=== PATIENT | female | born 1985 | race Caucasian/White ===

== ENCOUNTER 2018-04-25 17:56 | Emergency (ER) | payer MEDICAID ==
[~2018-04-25] VITALS: Ht 172.7 cm; Wt 83.3 kg
[~2018-04-25 17:56] MED LIST: ACET500C5 PO
[2018-04-25 18:36] VITALS: Ht 172.7 cm; Wt 83.3 kg
[2018-04-25] MEDS ORDERED: SOD CHLORIDE 0.9% 1,000 ML IV STA (18:48)
[2018-04-25] MEDS ORDERED: KETOROLAC 30 MG INJ IV STA (18:48)
[2018-04-25] MEDS ORDERED: ONDANSETRON 4 MG INJ IV STA (18:48)
[2018-04-25] MEDS ORDERED: IBUP-1542 PO (20:41)
--- NOTE | 2018-04-25 20:48 | ERD ---
ER Documentation Chief Complaint Chief Complaint Flank pain. HPI 32-year-old female patient with no significant past medical history presents to the ED planing of left flank pain that started earlier today. Patient reports that because of her history of kidney stones, she is unsure whether this is muscle pain or kidney stone pain because she also twisted the left side of her back. Patient reports that she is taking Macrobid for possible UTI - states that she has some suprapubic pain. Denies any fever, chills, nausea, vomiting, diarrhea, neck stiffness, abdominal pain. ROS All systems reviewed and are negative except as per history of present illness. Medications Home Meds Active Scripts Ibuprofen* (Motrin*) 600 Mg Tab, 600 MG PO Q6, #30 TAB Prov:ASHVIN LAU PA-C 04/25/18 Acetaminophen* (Tylophen*) 500 Mg Capsule, 1 CAP PO Q6H PRN for PAIN AND OR ELEVATED TEMP, #20 CAP 0 Refills Prov:MARIETTA NAJERA PA-C 06/21/15 Allergies Allergies: Coded Allergies: No Known Allergy (Unverified , 02/03/16) PMhx/Soc History of Surgery: Yes () Anesthesia Reaction: No Hx Neurological Disorder: No Hx Respiratory Disorders: No Hx Cardiac Disorders: No Hx Psychiatric Problems: No Hx Miscellaneous Medical Probl: No Hx Alcohol Use: No Hx Substance Use: No Hx Tobacco Use: No Smoking Status: Never smoker FmHx Family History: No diabetes, No coronary disease Physical Exam Vitals Vital Signs Date Temp Pulse Resp B/P (MAP) Pulse Ox O2 O2 Flow FiO2 Time Delivery Rate 04/25/18 98.1 67 16 167/92 98 18:36 (117) Physical Exam Const: [id number], well-nourished. In no acute distress. Head: Atraumatic, normocephalic Eyes: Normal Conjunctiva without injection. No purulent discharge. PERRLA. EOMI ENT: Normal external ear. Ear canal without erythema. Tympanic membrane pearly martin without effusion or bulging. Nasal canal clear with normal turbinates. Moist oropharynx without tonsillar exudates. Non-erythematous pharynx. Uvula midline. No drooling. No trismus. Neck: No cervical midline tenderness. Full range of motion. No meningismus. No cervical lymphadenopathy. No JVD. Resp: Clear to auscultation bilaterally. No wheezing, rhonchi, rales, or crackles. No accessory muscle use. No retractions. Cardio: Regular rate and rhythm. No murmurs, rubs or gallops. Abd: Soft, non tender, non distended. Normal bowel sounds. No palpable masses. No rebound tenderness. No guarding. Negative McBurney's Point. Negative Gandara's Sign. Skin: Normal skin turgor. No petechiae or rashes Back: No midline tenderness. No CVA tenderness. Ext: No cyanosis, or edema. Distal pulses intact bilaterally. Neur: Awake and alert. Normal gait. Normal coordination. Cranial Nerves II- VII intact. Normal finger to nose. Muscle strength 5/5. Sensation intact. Psych: Normal Mood and Affect Results 24 hrs Laboratory Tests Test 04/25/18 13:00 04/25/18 19:10 04/25/18 19:21 Urine Color YELLOW Urine Clarity CLEAR Urine pH 5.0 Urine Specific Cascade 1.014 Urine Ketones NEGATIVE mg/dL Urine Nitrite NEGATIVE mg/dL Urine Bilirubin NEGATIVE mg/dL Urine Urobilinogen NEGATIVE mg/dL Urine Leukocyte Esterase NEGATIVE Leticia/ul Urine Hemoglobin NEGATIVE mg/dL Urine Glucose NEGATIVE mg/dL Urine Total Protein NEGATIVE mg/dl White Blood Count 8.3 10^3/ul Red Blood Count 4.64 10^6/ul Hemoglobin 13.6 g/dl Hematocrit 40.2 % Mean Corpuscular Volume 86.6 fl Mean Corpuscular Hemoglobin 29.3 pg Mean Corpuscular 33.8 g/dl Hemoglobin Concent Red Cell Distribution Width 12.6 % Platelet Count 212 10^3/UL Mean Platelet Volume 12.5 fl Immature Granulocytes % 0.200 % Neutrophils % 57.2 % Lymphocytes % 26.9 % Monocytes % 11.0 % Eosinophils % 4.0 % Basophils % 0.7 % Nucleated Red Blood Cells % 0.0 /100WBC Immature Granulocytes # 0.020 10^3/ul Neutrophils # 4.7 10^3/ul Lymphocytes # 2.2 10^3/ul Monocytes # 0.9 10^3/ul Eosinophils # 0.3 10^3/ul Basophils # 0.1 10^3/ul Nucleated Red Blood Cells # 0.0 10^3/ul Sodium Level 138 mmol/L Potassium Level 4.0 mmol/L Chloride Level 104 mmol/L Carbon Dioxide Level 26 mmol/L Anion Gap 8 Blood Urea Nitrogen 16 mg/dl Creatinine 0.64 mg/dl Est Glomerular Filtrat > 60 mL/min Rate mL/min Glucose Level 114 mg/dl Calcium Level 9.8 mg/dl Total Bilirubin 0.1 mg/dl Direct Bilirubin 0.00 mg/dl Indirect Bilirubin 0.1 mg/dl Aspartate Amino 25 IU/L Transf (AST/SGOT) Alanine 21 IU/L Aminotransferase (ALT/SGPT) Alkaline Phosphatase 91 IU/L Total Protein 7.8 g/dl Albumin 4.5 g/dl Globulin 3.30 g/dl Albumin/Globulin Ratio 1.36 Lipase 67 U/L POC Beta HCG, Qualitative NEGATIVE Current Medications Medications Dose Sig/Dina Start Time Status Last (Trade) Ordered Route PRN Stop Time Admin Dose Reason Admin Sodium 1,000 ml @ Q1H STAT 04/25/18 DC 04/25/18 Chloride 1,000 mls/hr IV 18:48 19:08 04/25/18 19:47 Ondansetron 4 mg ONCE STAT 04/25/18 DC 04/25/18 HCl (Zofran IV 18:48 19:28 Inj) 04/25/18 18:50 Ketorolac 30 mg ONCE STAT 04/25/18 DC 04/25/18 Tromethamine IV 18:48 19:28 (Toradol) 04/25/18 18:50 Procedures/MDM 32-year-old female patient with no significant past medical history presents to ED complaining of left flank pain that started 2 days ago. Patient is afebrile and nontoxic-appearing. Patient's blood pressure is 167/92. Blood Pressure Assessment: Patient's blood pressure was elevated (>120/80) but appears stable without evidence of hypertension emergency or urgency. The patient was counseled about the risks of hypertension and urged to pursue outpatient monitoring and therapy within a week with their primary care physician. Patient was further worked up with CBC, CMP, lipase, UA, renal ultrasound. Patient's pain and symptoms have improved after treatment with 1 L of normal saline, 30 mg IV Toradol. CBC: No leukocytosis. No e/o of systemic infection. No e/o anemia. CMP: No e/o severe acidosis, alkalosis, renal failure, diabetic ketoacidosis, liver disease Lipase within normal limits. Urine: No leukocyte esterase, no nitrites, no hematuria. Urine : Negative IMPRESSION: There is mild left hydronephrosis. A discrete calculus is not identified sonographically. Mild left hydronephrosis however no leukocyte esterase, hematuria, nitrite noted. Nonspecific hydronephrosis noted. Discussed my supervising physician, Dr. Rodriguez who stated that patient can be managed on an outpatient basis. Low suspicion for ectopic , ovarian torsion, gastritis, GERD, peptic ulcer disease, cholecystitis, choledocholithiasis, cholangitis, pancreatitis, appendicitis, bowel obstruction, ileus, volvulus, nephrolithiasis, pyelonephritis, hepatitis, perforated viscus, diverticulitis, strangulated/incarcerated hernia, DKA, acute abdomen, mesenteric ischemia or other emergent conditions. Diagnosis: Flank Pain Discharge medications: Ibuprofen Follow up with primary care physician in 1-2 days. Instructed patient to return to the ED sooner for any worsening symptoms. Patient's questions were answered. Patient is hemodynamically stable. Patient understood and agreed with discharge plan. Patient discharged stable. Disclaimer: Inadvertent spelling and grammatical errors are likely due to EHR/dictation software use and do not reflect on the overall quality of patient care. Also, please note that the electronic time recorded on this note does not necessarily reflect the actual time of the patient encounter. Departure Diagnosis: Primary Impression: Flank pain Patient Instructions: Flank Pain, Uncertain Cause Referrals: [facility] YOU HAVE RECEIVED A MEDICAL SCREENING EXAM AND THE RESULTS INDICATE THAT YOU DO NOT HAVE A CONDITION THAT REQUIRES URGENT TREATMENT IN THE EMERGENCY DEPARTMENT. FURTHER EVALUATION AND TREATMENT OF YOUR CONDITION CAN WAIT UNTIL YOU ARE SEEN IN YOUR DOCTORS OFFICE WITHIN THE NEXT 1-2 DAYS. IT IS YOUR RESPONSIBILITY TO MAKE AN APPOINTMENT FOR FOLOW-UP CARE. IF YOU HAVE A PRIMARY DOCTOR --you should call your primary doctor and schedule an appointment IF YOU DO NOT HAVE A PRIMARY DOCTOR YOU CAN CALL OUR PHYSICIAN REFERRAL HOTLINE AT IF YOU CAN NOT AFFORD TO SEE A PHYSICIAN YOU CAN CHOSE FROM THE FOLLOWING [facility] CLINICS [facility] [address] [facility] [address] [facility] [address] [facility] [address] [facility]. [facility] [address] [facility]. [facility]. [address] [facility]. [facility] YOU HAVE RECEIVED A MEDICAL SCREENING EXAM AND THE RESULTS INDICATE THAT YOU DO NOT HAVE A CONDITION THAT REQUIRES URGENT TREATMENT IN THE EMERGENCY DEPARTMENT. FURTHER EVALUATION AND TREATMENT OF YOUR CONDITION CAN WAIT UNTIL YOU ARE SEEN IN YOUR DOCTORS OFFICE WITHIN THE NEXT 1-2 DAYS. IT IS YOUR RESPONSIBILITY TO MAKE AN APPOINTMENT FOR FOLOW-UP CARE. IF YOU HAVE A PRIMARY DOCTOR --you should call your primary doctor and schedule and appointment IF YOU DO NOT HAVE A PRIMARY DOCTOR YOU CAN CALL OUR PHYSICIAN REFERRAL HOTLINE AT . IF YOU CAN NOT AFFORD TO SEE A PHYSICIAN YOU CAN CHOSE FROM THE FOLLOWING [facility] INSTITUTIONS: [facility] [address] [place] [address] [facility] [address] [place] [address] [facility] [address] [place] [address] [facility] URGENT CARE/SPECIALTIES Additional Instructions: Llame al doctor MAANA y josias nohemi NYA PARA DENTRO DE 2-3 HARMON.Dgale a la secretaria que nosotros le instruimos hacer esta nya.Avise o llame si zabala condicin se empeora antes de la nya. Regresa aqui si peor o no mejor. ASHVIN LAU PA-C Apr 25, 2018 20:48
[2018-04-25 20:49] VITALS: BP 150/86; PULSE 63; RESP 18
== END 2018-04-25 20:50 | disposition home or self-care (01) ==
LOC: FTE 17:56
DX: R10.9 Unspecified abdominal pain (principal); R40.2252 Coma scale, best verbal response, oriented, at arrival to emergency department; R40.2362 Coma scale, best motor response, obeys commands, at arrival to emergency department; R40.2142 Coma scale, eyes open, spontaneous, at arrival to emergency department
CPT/HCPCS: 36415; 76775; 80053; 81003; 81025; 83690; 85025; 96374; 96375; J1885; J2405; J7030; Z7502

== ENCOUNTER 2019-02-05 04:04 | Emergency (ER) | payer MEDICAID ==
[~2019-02-05] VITALS: Ht 172.7 cm; Wt 85.5 kg
[~2019-02-05 04:04] MED LIST changes: +D-ME118S24 PO; +IBUP-1542 PO
[2019-02-05 04:08] VITALS: Ht 172.7 cm; Wt 85.5 kg
[2019-02-05 05:25] VITALS: BP 182/84; PULSE 63; RESP 20
== END 2019-02-05 05:30 | disposition home or self-care (01) ==
LOC: FTE 04:04
DX: R06.02 Shortness of breath (principal)
CPT/HCPCS: 71045; 93005; Z7502